=== PATIENT | female | born 1995 | race Caucasian/White ===

== ENCOUNTER 2020-02-09 14:36 | Outpatient (CLI) | payer OTHER, MEDICAID, SELFPAY ==
[2020-02-09] VITALS (39 sets, daily range): BP systolic 85–116; BP diastolic 45–65; PULSE 83–108; RESP 16; TEMP 36.8–37.1; O2SAT 98–100; BMI 27.4
--- NOTE | 2020-02-09 15:06 | USR_ITS ---
PROCEDURE INFORMATION: Exam: US , Limited Exam date and time: 02/09/2020 3:14 PM Age: 24 years old Clinical indication: Lmp or gestational age (in weeks): 22 wks 0 days; Other: Vaginal bleeding; TECHNIQUE: Imaging protocol: Real-time ultrasound of the maternal uterus with image documentation. Exam focused on the clinical indication. COMPARISON: US OB >= 14 weeks fetus [id number] 02/04/2020 10:58 AM FINDINGS: Gestation: Single live intrauterine fetus obliquely positioned. heart rate: heart rate is 157 bpm. Placenta: Placenta is fundal without evidence of previa. MATERNAL: Cervix: Short cervix measuring 1.3 cm. There is funneling at the internal cervical os. US/US OB limited [id number] IMPRESSION: Single live intrauterine fetus. Short cervix with funneling at the internal cervical os.
[2020-02-09 15:27] LABS: Basophils % 0.2 %; Eosinophils # 0.1 10^3/uL (0.0-0.8); Eosinophils % 0.6 %; Hematocrit 31.4 % (37.0-47.0); Hemoglobin 10.2 g/dL (11.5-15.3); Lymphocytes # 1.4 10^3/uL (0.8-4.8); Mean Corpuscular HGB Conc 32.5 g/dL (30.0-36.0); Mean Corpuscular Hemoglobin 28.3 pg (28.0-34.0); Mean Corpuscular Volume 87.2 fL (81-99); Mean Platelet Volume 11.3 fL (7.4-10.4); Monocytes # 0.7 10^3/uL (0.2-0.9); Neutrophils # 6.79 10^3/uL (1.8-7.7); Neutrophils % 75.5 %; Nucleated Red Blood Cells % 0 %; Platelet Count 201 10^3/cmm (130-400); Red Cell Distribution Width 13.6 % (12.1-15.1)
[2020-02-09] MEDS: sodium chloride 0.9% 1,000 ML 999 ML IV (16:06)
--- NOTE | 2020-02-09 16:22 | PC.NURSE ---
Dr. Mccarthy Radiologist reported short cervix funneling internal os. Dr. Ospina notified at [id number]
--- NOTE | 2020-02-09 16:32 | PC.NURSE ---
Nursing in room to let patient up to restroom per Dr. Ospina's orders for bathroom privilege. Patient in bathroom and nursing can hear audible vaginal bleeding. Patient reports she is passing several clots. Nursing assisted patient back to bed and got Dr. Ospina to come to room to assess patient. Several clots noted in toilet. Will continue to monitor.
--- NOTE | 2020-02-09 16:46 | PC.NURSE ---
Dr. Ospina at bedside to perform speculum exam. [employer] Salesperson and Peewee Madrigal RN in room assisting Dr. Ospina. Dr. Ospina swabbed vaginal canal several times to remove blood and blood clots to better visualize the cervix. Patient tolerated well. Patient was placed in supine position with feet elevated after procedure per Dr. Ospina's orders.
--- NOTE | 2020-02-09 17:11 | PM.OBGYDC ---
Discharge Providers MAINTENANCE ASSISTANT Date of Discharge: 02/09/20 Attending Provider at Discharge: Afshin Ospina MD Primary Care Provider: LOLA Kang Reason for Visit Reason for Visit: Bleeding, cramping Hospital Course Hospital Course: The patient arrived to the hospital complaining of bleeding. She had multiple large clots that she passed after being here. A speculum examination of the cervix did not demonstrate any abnormalities. During her hospital stay she began having more contractions that were more painful to the patient. Contractions increased to every 4 minutes and palpated is moderately firm contractions. Because of her gestational age of 22 weeks I discussed the case with Dr. Mahmood associated with [facility]. We have decided to shift the patient's to her facility for definitive care. I had a long discussion with the mother and the father multiple times. We discussed issues including the viability and morbidity of the baby. Physical Exam Const: COMMON NORMALS: patient oriented x3 and alert HENMT: COMMON NORMALS: moist oral mucous membranes HEAD & SCALP: normal to inspection Chest: COMMONS NORMALS: normal inspection of the chest Resp: COMMON NORMALS: clear to auscultation bilaterally AUSCULTATION: clear to auscultation bilaterally Cardio: COMMON NORMALS: regular rate and regular rhythm RATE: regular rate RHYTHM: regular rhythm GI: INSPECTION: Yes normal to inspection and Yes other (Gravid) : MANUAL OB EXAM: other (The cervix is closed and thick. Blood is noticed at the office. There is no irritation or inflammation of the cervix.) Extremity: COMMON NORMALS: normal to inspection GENERAL: Yes edema (Trace) Neuro: COMMON NORMALS: patient oriented x3, moves all extremities and no sensory deficits noted SENSORIUM/ORIENTATION: Yes alert Psych: COMMON NORMALS: mental status grossly normal Skin: COMMON NORMALS: no rashes or lesions noted GENERAL SKIN EXAM: no rashes or lesions noted Discharge Data Data Completed and Pending: Completed Studies During Hospitalization Category Date Time Status US OB limited 768 15 Stat Ultrasound 02/09/20 15:06 Completed Labs from last 24 hours 02/09/20 15:13 WBC 9.0 RBC 3.60 L Hgb 10.2 L Hct 31.4 L MCV 87.2 MCH 28.3 MCHC 32.5 RDW 13.6 Plt Count 201 MPV 11.3 H Neut % (Auto) 75.5 Lymph % (Auto) 15.0 [place] % (Auto) 8.0 Eos % (Auto) 0.6 Baso % (Auto) 0.2 Neut # (Auto) 6.79 Lymph # (Auto) 1.4 [place] # (Auto) 0.7 Eos # (Auto) 0.1 Baso # (Auto) 0.0 Nucleated RBC % (a uto) 0 Nucleated RBCs # 0.0 Addt'l Data from Hospital Stay: The ultrasound showed that the cervix had some funneling of the cervix of 1.[address] to the baby was 680 g. The placenta is fundal. The baby is in a oblique position. Vitals: Last Vital Signs Temp 98.3 F 02/09/20 15:16 Pulse 91 02/09/20 17:08 BP 103/59 02/09/20 17:08 Discharge Plan Discharge Patient Disposition: Xfer Other Discharge Orders: Discharge Order (Routine); Ordered 02/09/20 Ordered By: Afshin Ospina Discharge Date/Time: 02/09/20 20:13 Discharge Attestations MAINTENANCE ASSISTANT Time Spent in Discharge Care*: greater than 30 min Coding Level of Care Code Acute Retail Merchandising Specialist for Chg Lei
--- NOTE | 2020-02-09 17:12 | P.SS_ITS ---
Short Stay Summary Providers Date of Admit/Discharge: 02/09/20 Attending Provider: Afshin Ospina MD Primary Care Provider: LOLA Kang Chief Complaint: Bleeding, cramping HPI History of Present Illness Neva Ribeiro is a 24 year old 2 para 0-0-1-0 female at 22 weeks estimated gestational age per first trimester ultrasound. The patient arrived at the hospital today complaining of bleeding. She had 3 pads are saturated last night. Review of Systems General: Reports: 10 or more systems reviewed and unremarkable except in HPI and below Const: Reports: fatigue; Denies: fever(s) Eyes: Denies: change in vision Card: Denies: chest pain Resp: Denies: dyspnea, productive cough or non-productive cough : Reports: vaginal bleeding (Some mild cramps.) Manuel/Lymph: Denies: easy bruising PFSH Acute Female Reproductive History: : 2 Vitals/I&O/Wt Last Vital Signs Temp 98.3 F 02/09/20 15:16 Pulse 91 02/09/20 17:08 BP 103/59 02/09/20 17:08 Weight last 48 hrs Weight 150 lb Physical Exam Const: COMMON NORMALS: patient oriented x3 and alert HENMT: COMMON NORMALS: moist oral mucous membranes HEAD & SCALP: normal to inspection Chest: COMMONS NORMALS: normal inspection of the chest Resp: COMMON NORMALS: clear to auscultation bilaterally AUSCULTATION: clear to auscultation bilaterally Cardio: COMMON NORMALS: regular rate and regular rhythm RATE: regular rate RHYTHM: regular rhythm GI: INSPECTION: Yes normal to inspection and Yes other (Gravid) : SPECULUM EXAM - CERVIX: Yes Other cervical findings present (Cervix is c losed and appears to be thick and firm) Extremity: COMMON NORMALS: normal to inspection GENERAL: Yes edema (Trace) Neuro: COMMON NORMALS: patient oriented x3, moves all extremities and no sensory deficits noted SENSORIUM/ORIENTATION: Yes alert Psych: COMMON NORMALS: mental status grossly normal Skin: COMMON NORMALS: no rashes or lesions noted GENERAL SKIN EXAM: no rashes or lesions noted Hospital Course Hospital Course: The patient arrived to the hospital complaining of bleeding. She had multiple large clots that she passed after being here. A speculum examination of the cervix did not demonstrate any abnormalities. During her hospital stay she began having more contractions that were more painful to the patient. Contractions increased to every 4 minutes and palpated is moderately firm contractions. Because of her gestational age of 22 weeks I discussed the case with Dr. Mahmood associated with [facility]. We have decided to shift the patient's to her facility for definitive care. I had a long discussion with the mother and the father multiple times. We discussed issues including the viability and morbidity of the baby. SSS Data Data Completed and Pending: Completed Studies During Hospitalization Category Date Time Status US OB limited 768 15 Stat Ultrasound 02/09/20 15:06 Completed Discharge Plan Discharge Patient Disposition: Xfer Other Attestations Medical Necessity Statement*: Short stay Time Spent in Patient Care*: greater than 30 min Quality Metrics Clinical Quality Measures: During this hospital stay, did patient experience: None Coding Level of Care Code Acute Contact Printer Dry Film for Lydia Odom
[2020-02-09] MEDS: sodium chloride 0.9% 1,000 ML 125 ML IV (17:20)
--- NOTE | 2020-02-09 17:26 | USR_ITS ---
PROCEDURE INFORMATION: Exam: US , Limited Exam date and time: 02/09/2020 5:52 PM Age: 24 years old Clinical indication: Lmp or gestational age (in weeks): 22 wks 0 days; Other: Vaginal bleeding; TECHNIQUE: Imaging protocol: Real-time ultrasound of the maternal uterus with image documentation. Exam focused on the clinical indication. COMPARISON: OB limited [id number] 02/09/2020 3:26 PM FINDINGS: Gestation: Intrauterine gestation. heart rate: heart rate is 157 bpm. Presentation: There is a single live intrauterine fetus in breech position. Amniotic fluid index: Visually RAULITO is within normal limits. BIOMETRY: Gestational age (AUA): EGA based on ultrasound is 22 weeks and 0 days. Estimated weight: Estimated weight is 608 g. This is within normal limits for a fetus of this gestational age. Biparietal diameter: BPD is 5.4 cm with an EGA of 22 weeks and 3 days. Head circumference: Head circumference is 20.2 cm with an EGA of 22 weeks and 2 days. Abdominal circumference: Abdominal circumference is 19.3 cm with an EGA of 24 weeks and 0 days. Femur length: Femur length is 4.2 cm with an EGA of 23 weeks and 4 days. US/ OB limited [id number] IMPRESSION: Single live intrauterine fetus. EGA based on ultrasound is 22 weeks and 0 days.
[2020-02-09] MEDS: betamethasone susp 6 mg/mL 5 mL 12 MG IM (18:53)
[2020-02-09] MEDS: magnesium sulfate premix 4 GM/100 ML PREMIX IV (18:56)
[2020-02-09] MEDS: magnesium sulfate premix 20 GM/500 ML BAG IV (19:26)
--- NOTE | 2020-02-09 20:03 | PC.NURSE ---
Notified Neva at [facility] that patient was being loaded on to [facility] at this time for transport and her would be shortly behind her.
--- NOTE | 2020-02-09 20:18 | PC.NURSE ---
AMBULANCE TRANSFER TEAM ARRIVED TO UNIT AT 1999
--- NOTE | 2020-02-09 20:19 | PC.NURSE ---
CARE OF PT TRANSFERRED TO EMT TEAM AT 2012, PT TAKEN OFF UNIT [facility]IA [facility]
== END 2020-02-09 20:13 | disposition other institution (70) ==
LOC: OPOB 14:37 → OBGYN 14:38
PROVIDERS: Family Provider Nurse Practitioner Family; PCP Nurse Practitioner Family; Visit Provider Family Medicine
DX: O46.90 Antepartum hemorrhage, unspecified, unspecified trimester (principal); Z3A.00 Weeks of gestation of pregnancy not specified
CPT/HCPCS: 12345; 36415; 51702; 59025; 76815; 85025; 99211; J0702; J3475; J7030